=== PATIENT | male | born 1935 | race African-American/Black ===

== ENCOUNTER → 2019-03-15 | Outpatient (CLI) | payer MEDICARE ==
--- NOTE | 2019-03-20 13:25 | RESP ---
DATE OF SERVICE: 03/15/2019 PULMONARY FUNCTION TEST The patient underwent full pulmonary function testing on 03/15/2019. The FEV1 to FVC ratio was 75%, FEV1 was normal at 93% of predicted 1.74 liters, FVC was 2.32 liters at 94% of predicted. Total lung capacity was elevated. Residual volume was elevated. Diffusion capacity was preserved. IMPRESSION: 1. Mild air flow limitation. 2. Residual volume elevated compatible with air trapping. BOBBI RUFFIN MD DR: OLAF/ny JOB#: [id number] / [id number]
== END | disposition home or self-care (01) ==
LOC: PF 08:44
PROVIDERS: ATTEND Family Medicine
DX: R06.2 Wheezing (principal)
CPT/HCPCS: 94010; 94729